=== PATIENT | male | born 1995 | race Two or more races ===

== ENCOUNTER 2016-11-09 05:43 | Emergency (ER) | payer BC ==
[~2016-11-09] VITALS: Ht 177.8 cm; Wt 86.2 kg
--- NOTE | 2016-11-09 05:55 | NUR ---
PT WAS FOUND WONDERING AN ALLEY WAY ALTERED TRYING TO GET INTO A CAR THAT WAS PARKED ON THE STREET, PT STATES HE HAD 3 DRINKS DENIES DRUG USE. PT AOX3 RR EVEN AND UNLABORED. NO SOB NOTED. NAD NOTED. NO NVD AT THIS TIME. PT PLACED ON MONITOR WAITING FOR MD DESIA.
--- NOTE | 2016-11-09 07:11 | NUR ---
REPORT GIVEN TO VÍCTOR DAVILA FOR WHIT.
--- NOTE | 2016-11-09 07:30 | NUR ---
Patient is resting comfortably in bed with eyes closed. Easily aroused. VSS
--- NOTE | 2016-11-09 08:20 | NUR ---
Patient is resting comfortably in bed with eyes closed. Easily aroused. VSS
--- NOTE | 2016-11-09 09:46 | NUR ---
Patient ambulates the hallway with stable gait. Dr Angeles made aware.
--- NOTE | 2016-11-09 10:04 | NUR ---
Patient discharged to home in stable condition. Written and verbal after care instructions given. Patient verbalizes understanding of instruction. Patient is AAOX3, ambulates out of ER with stable gait.
[2016-11-09 10:05] VITALS: BP 118/65
== END 2016-11-09 10:07 | disposition home or self-care (01) ==
LOC: ER 05:45
DX: S00.81XA Abrasion of other part of head, initial encounter (principal); F10.129 Alcohol abuse with intoxication, unspecified; R41.82 Altered mental status, unspecified; W19.XXXA Unspecified fall, initial encounter; Y93.89 Activity, other specified; Y92.89 Other specified places as the place of occurrence of the external cause; Y99.8 Other external cause status
CPT/HCPCS: A4606; Z7610